=== PATIENT | male | born 1950 | race Caucasian/White ===

== ENCOUNTER → 2018-10-13 | Outpatient (CLI) | payer MEDICARE, OTHER ==
[~2018-10-13] MED LIST: NITROGLYCERIN AEROSOL (4.9 GM)
[2018-10-13] MEDS: SOD CHLORIDE 0.9% 100 ML (10:33)
[2018-10-13] MEDS: IOHEXOL 100 ML (10:33)
== END | disposition home or self-care (01) ==
LOC: C/S 06:35
DX: R76.8 Other specified abnormal immunological findings in serum (principal)
CPT/HCPCS: 75571; 75571-59; 75574